=== PATIENT | female | born 1965 ===

== ENCOUNTER → 2018-07-27 | Outpatient (CLI) | payer OTHER | LOC: BMCIMAGING 10:09 | PROVIDERS: ATTEND Internal Medicine Hematology & Oncology | DX: Z13.820 Encounter for screening for osteoporosis (principal); C50.411 Malignant neoplasm of upper-outer quadrant of right female breast; M85.88 Other specified disorders of bone density and structure, other site ==

== ENCOUNTER 2018-09-28 05:38 | Observation (INO) | payer OTHER ==
--- NOTE | 2018-09-06 14:16 | GHP ---
DATE OF ADMISSION: 09/28/2018 ADMITTING DIAGNOSES: 1. History of breast cancer. 2. Prophylactic cancer risk reduction. HISTORY OF PRESENT ILLNESS: Patient is a 53-year-old, G1, P1-0-0-1, who presents for a surgery consult from Dr. Champion's office with a recent diagnosis of stage I breast cancer December 2017. In March 2018, she underwent a lumpectomy with sentinel node biopsy revealing invasive ductal carcinoma, grade 1. She then underwent a course of brachytherapy. Mirena IUD was removed in January of 2018. She noted occasional hot flashes, but was not having any cycles. The patient had Mirena IUD for 10 years and did not have any bleeding. The patient was recently just placed on Lupron by Dr. Champion, questionable menopausal status. Patient was also started on an aromatase inhibitor. The patient at this time is wanting prophylactic surgery done to reduce her cancer risk. The patient is aware that she is not a candidate for hormone replacement therapy. She was offered [facility] cancer genetic screening and patient declined. We discussed proceeding with laparoscopic removal of her uterus, tubes, and ovaries. PAST OBSTETRIC HISTORY: In 1997, she had a secondary to arrest of dilation. GYNECOLOGIC HISTORY: Age of menarche was 14. Cycles were regular. She then got Mirena IUD and for the last 10 years has had no cycles, now questionable menopausal status. The patient denies a history of abnormal Pap smears or any exposure to sexually transmitted diseases. CURRENT MEDICATIONS: Include Lupron, aromatase inhibitor, niacin and vitamin D. ALLERGIES: No known drug allergies. PAST MEDICAL HISTORY: Remarkable for breast cancer, stage I. PAST SURGICAL HISTORY: In 1997, ; in March of 2018, right breast lumpectomy. SOCIAL HISTORY: Patient is and lives with her . She works at a [employer]. Patient is a former tobacco user, smoked for 20-25 years. Drinks socially, 1-2 drinks per month and denies any illicit drug use. FAMILY HISTORY: Sister, migraine headache. Mother, cardiovascular disease. Daughter, type 2 diabetes and PE secondary to OCP use and at age 17. REVIEW OF SYSTEMS: 10-point review of systems is negative. Pertinent positives noted in the HPI. PHYSICAL EXAMINATION UPON ADMISSION,: VITAL SIGNS: Stable. Patient is afebrile. GENERAL: The patient is well-nourished, well-developed female. Alert and oriented x3. CARDIOVASCULAR: Regular rate and rhythm. LUNGS: Clear to auscultation bilaterally. SKIN: Warm, dry without rash. NEURO: Grossly intact. ABDOMEN: Soft, nontender, nondistended. Pfannenstiel incision well healed. PELVIS: On bimanual exam, normal-size uterus noted that is nontender and mobile. No adnexal masses or tenderness appreciated. EXTREMITIES: Normal to inspection without calf tenderness or edema. ASSESSMENT/PLAN: Patient is a 53-year-old with a history of breast cancer , stage I, status post lumpectomy and a course of brachytherapy for surgery for prophylactic cancer risk reduction. 1. Discussed the procedure, its limitations, nothing by mouth status, and postoperative recovery. Also discussed removing her ovaries and a surgical menopause and symptoms of menopause similar to the Lupron she is on now. She is aware she is not a candidate for hormone replacement and wants to proceed with having her ovaries removed at the time of surgery. 2. Surgical consents were obtained. Discussed risks, benefits, alternatives of the procedure, including but not limited to, bleeding, infection, and damage to surrounding organs. The patient understands all risks at this time and wants to proceed. 3. Antibiotics silk conditioner to operating room. 4. Sequential compression devices for DVT prophylaxis. 5. Lovenox postoperative for 10 days per her oncologist-Dr. Champion's recommendation. /[id number]/MODL MTDD
[2018-09-28] MEDS ORDERED: ceFAZolin 2 GM/DEXTROSE 100 ML IV ONE (05:50)
[2018-09-28] MEDS ORDERED: LR 1,000 ML IV ONE (05:51)
[2018-09-28] MEDS ORDERED: LIDOCAINE 1% 2 ML INJ ID PRN (05:51)
[2018-09-28] MEDS ORDERED: BUPIVACAINE 0.5% 30 ML SDV ONE (06:16)
[2018-09-28] MEDS ORDERED: MIDAZOLAM 2 MG/2 ML VIAL IVP ONE (06:52)
--- NOTE | 2018-09-28 06:52 | PDANEPAE ---
ANE History of Present Illness here for lap hyst ANE Past Medical History - Cardiovascular History Hx Hypertension: No Hx Arrhythmias: No Hx Chest Pain: No Hx Coronary Artery / Peripheral Vascular Disease: No Hx CHF / Valvular Disease: No Hx Palpitations: No - Pulmonary History Hx COPD: No Hx Asthma/Reactive Airway Disease: No Hx Recent Upper Respiratory Infection: No Hx Oxygen in Use at Home: No Hx Sleep Apnea: No Sleep Apnea Screening Result - Last Documented: Negative - Neurologic History Hx Cerebrovascular Accident: No Hx Seizures: No Hx Dementia: No - Endocrine History Hx Diabetes: No - Renal History Hx Renal Disorders: No - Liver History Hx Hepatic Disorders: No - Neurological & Psychiatric Hx Hx Neurological and Psychiatric Disorders: No - Cancer History Hx Cancer: Yes Cancer History Comment: breast ca - Congenital Disorder History Hx Congenital Disorders: No - GI History Hx Gastrointestinal Disorders: No - Other Health History Other Health History: wears glasses - Chronic Pain History Chronic Pain: No - Surgical History Prior Surgeries: . lumpectomy ANE Review of Systems Review of systems is: negative Review of Systems: - Exercise capacity Exercise capacity: >=4 METS METS (RN): 5 METS ANE Patient History - Allergies Allergies/Adverse Reactions: No Known Allergies Allergy (Verified 09/19/18 11:54) - Home Medications Home medications: home medication list seen and reviewed Home Medications: Calcium Carbonate 1,200 mg PO DAILY 09/17/18 [Last Taken 09/21/18] Cholecalciferol (Vitamin D3) [Vitamin D3] 2,000 unit PO DAILY 09/17/18 [Last Taken 09/21/18] Letrozole [Femara 2.5 mg (*)] 2.5 mg PO DAILY 09/17/18 [Last Taken 09/28/18 04: 00] Niacin [Niacin 500 mg (*)] 500 mg PO DAILY 09/17/18 [Last Taken 09/21/18] [place]-3 Fatty Acids [Fish Oil 1000 mg (*)] 1,000 mg PO DAILY 09/17/18 [Last Taken 09/21/18] Zoledronic Acid/Mannitol-Water [Zometa 4 mg/100 ml Injection] 4 mg IV Q180D [Last Taken 09/21/18] - NPO status NPO Status: no food or drink >8 hours NPO Since - Liquids (Date): 09/28/18 NPO Since - Liquids (Time): 04:00 NPO Since - Solids (Date): 09/27/18 NPO Since - Solids (Time): 18:00 - Smoking Hx Smoking Status: Former smoker - Family Anes Hx Family Hx Anesthesia Complications: none ANE Labs/Vital Signs - Vital Signs Vital Signs: reviewed preoperatively; see RN documention for details Blood Pressure: 124/90 Heart Rate: 87 Respiratory Rate: 18 O2 Sat (%): 97 Height: 152.4 cm Weight: 58.967 kg ANE Physical Exam - Airway Neck exam: FROM Mallampati Score: Class 1 Mouth exam: normal dental/mouth exam - Pulmonary Pulmonary: no respiratory distress - Cardiovascular Cardiovascular: regular rate and rhythym - ASA Status ASA Status: II ANE Anesthesia Plan Anesthesia Plan: general endotracheal anesthesia
[2018-09-28] MEDS ORDERED: PROPOFOL/EMULSION 500 MG/50 ML BOTTLE IV ONE (07:02)
--- NOTE | 2018-09-28 07:08 | PDHPUP ---
History & Physical Update H&P update statement: This history and physical update is based on an assessment of the patient which was completed after admission or registration (within 24 hours), but prior to the surgery/procedure. H&P update: H&P reviewed & patient examined, no change in patient's condition since H&P completed
[2018-09-28] MEDS ORDERED: ONDANSETRON 4 MG/2 ML VIAL ONE (07:29)
[2018-09-28] MEDS ORDERED: DEXAMETHASONE 4 MG/ML VIAL ONE (07:29)
[2018-09-28] MEDS ORDERED: DEXAMETHASONE 4 MG/ML VIAL IVP PRN (07:48)
[2018-09-28] MEDS ORDERED: fentaNYL 100 MCG/2 ML INJ IVP PRN (07:48)
[2018-09-28] MEDS ORDERED: PROMETHAZINE HCL 25 MG/ML INJ IVP PRN (07:48)
[2018-09-28] MEDS ORDERED: ONDANSETRON 4 MG/2 ML VIAL IVP PRN ×2 (07:48→09:24)
[2018-09-28] MEDS ORDERED: LR 500 ML IV PRN (07:48)
[2018-09-28] MEDS ORDERED: ALBUTEROL 3 ML DEYVIAL IH PRN (07:48)
[2018-09-28] MEDS ORDERED: NALOXONE HCL 0.4 MG/ML INJ IVP PRN ×2 (07:48→09:52)
[2018-09-28] MEDS ORDERED: HYDROmorphONE/DILAUDID 2 MG/ML INJ IVP PRN (07:48)
[2018-09-28] MEDS ORDERED: fentaNYL 100 MCG/2 ML INJ ONE ×3 (07:54→09:39)
[2018-09-28] MEDS ORDERED: SUGAMMADEX SODIUM 200 MG/2 ML VIAL IVP ONE (09:05)
--- NOTE | 2018-09-28 09:19 | POSTOPPROG ---
Post Op Note Date of Operation: 09/28/18 Surgeon: Harleen Issa Transport Rn: Lizbeth Johnston Anesthesiologist: Taye Bar Anesthesia: GET(General Endotracheal) Pre-op Diagnosis: h/o breast cancer; prophylactic removal of ut, tubes and ovaries Post-op Diagnosis: h/o breast cancer; prophylactic removal of ut, tubes and ovaries Indication: 53 y/o w/ personal h/o breast ca, prophylactic removal of ut, tubes/ov Procedure: TLH, BSO Findings: Grossly normal appearing uterus, tubes and ovaries; upper abd normal Inf/Abcess present in the surg proc area at time of surgery?: No Depth: Organ Space EBL: 50-100 (50cc) Total fluids administered: 800 cc LR UO: 300 cc clear urine at end Complications: none Specimen(s): Uterus, cervix, tubes and ovaries
[2018-09-28] MEDS ORDERED: BISACODYL 10 MG SUPP PR PRN (09:20)
[2018-09-28] MEDS ORDERED: POLYETHYLENE GLYCOL 3350 17 GM PKT PO PRN (09:20)
[2018-09-28] MEDS ORDERED: MAGNESIUM HYDROXIDE 30 ML UDCUP PO PRN (09:20)
[2018-09-28] MEDS ORDERED: LACTULOSE 20 GM/30 ML UDCUP PO PRN (09:20)
[2018-09-28] MEDS ORDERED: LR 1,000 ML IV SCH (09:30)
[2018-09-28] MEDS ORDERED: LABETALOL HCL 20 MG/4 ML INJ IVP PRN (09:52)
--- NOTE | 2018-09-28 10:38 | POSTANESTH ---
Post Anesthetic Evaluation Cardiovascular Status: Normal, Stable Respiratory Status: Normal, Stable Level of Consciousness/Mental Status: Can Participate in Eval Pain Control: Adequate, Prn Tx Ordered Nausea/Vomiting Control: Adequate, Prn Tx Ordered Complications Possibly Related to Anesthesia: None Noted
--- NOTE | 2018-09-28 12:43 | GOP ---
DATE OF OPERATION: 09/28/2018 SURGEON: Harleen Issa DO CORROSION TECHNICIAN: Lizbeth Johnston MD. ANESTHESIA: General anesthesia with endotracheal tube. ANESTHESIOLOGIST: Taye Bar MD. PREOPERATIVE DIAGNOSIS: 1. History of breast cancer. 2. Prophylactic organ removal. POSTOPERATIVE DIAGNOSIS: 1. Personal history of breast cancer. 2. Prophylactic organ removal. PROCEDURE PERFORMED: Total laparoscopic hysterectomy with bilateral salpingo- oophorectomy. FINDINGS: Grossly normal-appearing uterus, tubes, and ovaries bilaterally. Upper abdomen grossly normal appearing as well. SPECIMENS: Uterus with cervix, tubes, and ovaries bilaterally. ESTIMATED BLOOD LOSS: 50 cc. INDICATIONS: Patient is a 53-year-old, G1, P1, with a diagnosis of breast cancer in December 2017, who underwent a lumpectomy followed by brachytherapy. The patient presented to the office for a surgical consult for prophylactic removal of her uterus, tubes, and ovaries. Discussed risks of the procedure including but not limited to, bleeding, infection, and damage to surrounding organs. The patient understands all risks of the procedure and wants to proceed at this time. Patient was properly consented. DESCRIPTION OF PROCEDURE: Patient was taken back to the operating room where general anesthesia was obtained without difficulty. The patient was then placed in dorsal lithotomy position, and prepped and draped in the usual sterile fashion. Saldana catheter was placed at this time. After WHO time-out was performed, an open ended speculum was placed in the vagina. The cervix was visualized and the anterior lip of the cervix was grasped with a single-tooth tenaculum. The cervical os needed to be dilated and was dilated to a #6 Hegar and sounded to 6 cm. A V-Care manipulator with ceramic cup was inserted and used as a means to manipulate the uterus. The weighted speculum was then removed. Attention was then turned to the abdomen. 0.5% plain Marcaine was used for infiltration of the infraumbilical area, then a 5 mm skin incision was made in this area using a scalpel. The Veress needle was then inserted uneventfully while tenting the abdominal wall. Opening pressure was less than 8 mmHg. Peritoneal cavity was then insufflated with CO2 gas to a maximum pressure of 20 mmHg. The Veress needle was then removed and a 5 mm trocar attached to a 0 degree laparoscope was introduced without difficulty through this site directly into the peritoneal cavity. The pelvic organs were visualized. After 5% plain Marcaine infiltration was done, a 10 mm skin incision was made on the right side and a 5 mm skin incision was made on the left side. Atraumatic trocars were then placed under direct visualization. At this time, the uterus was then upheld from below which revealed normal uterus, normal tubes and ovaries at this time. Beginning on the right side, the infundibular ligament was identified. The ureter was also visualized along the pelvic sidewall with peristalsis noted. At this time, using the LigaSure device, the IP ligament was clamped, cauterized multiple times and transected. Hemostasis was noted. Broad ligament was then clamped, cauterized multiple times and transected. The round ligament was then cauterized and cut using the LigaSure. The anterior leaf of the broad ligament was then taken down on the right side, dissecting down toward the peritoneal reflection at the base of the bladder adjacent to the cervix. A bladder flap was then created without difficulty. Uterine arteries were then were bilaterally clamped, cauterized multiple times and ligated. Pedicles appeared hemostatic The same process was repeated on the left side. At this time we were ready for the colpotomy which was done circumferentially with a monopolar J-hook. The uterus plus tubes and ovaries were then delivered through the vagina intact without difficulty and sent to Pathology. A sterile glove was then placed in the vagina to perform a pneumatic seal. We then went back up to the abdomen and looked at all the pedicles as well as the cuff and hemostasis was noted. The vaginal cuff was then closed with the V- Loc barbed stitch. Following this closure, re-inspection revealed hemostasis. The pelvis was then irrigated with normal saline. The fascia of the 10 mm port was closed with a Dewayne-Thomasen device using 0 Vicryl. All other ports were then removed under direct visualization and all air was allowed to escape the abdomen. All skin incisions were closed with Dermabond. The patient tolerated the procedure well. There were no complications. At the end of the procedure, sponge and glove was removed from the vagina. All sponges, instruments, and needles were counted and correct x2. The patient was then awakened, taken out of dorsal lithotomy position and sent to recovery room in stable condition. IV FLUIDS: 800 cc LR. URINE OUTPUT: 300 cc of clear urine at the end the procedure. COMPLICATIONS: There were no complications. /[id number]/MODL MTDD
[2018-09-28] MEDS: HYDROCODONE/APAP 5/325 TAB PO PRN ×4 (13:41→22:07)
[2018-09-28] MEDS: KETOROLAC 30 MG/1 ML SDV IVP SCH ×2 (14:55→20:57)
--- NOTE | 2018-09-28 17:30 | SOAPPROG ---
SOAP Progress Note Assessment/Plan: Assessment: s/p TLH, BSO secondary to h/o breast cancer POD # 0 - pt is stable Plan: Continue routine post-op care Encourage IS, ambulation Cont analgesics as ordered Lovenox tonight at 2100 Urine output is good H/H in am 09/29 Plan for d/c home in am 09/2909/28/18 17:30 Subjective: Pt seen and examined. Doing well with no complaints, sitting in chair. Pain is overall well controlled. Pt took po meds at 1600. Pt is OOB to chair, ayala regular diet, grewal in place, no flatus. Denies any f/c/n/v/P or SOB. Minimal spotting noted. No calf tenderness or pain. Objective: Vital Signs Temp Pulse Resp BP Pulse Ox 36.7 C 82 16 149/90 H 99 09/28/18 15:25 09/28/18 15:25 09/28/18 15:25 09/28/18 15:25 09/28/18 15:25 09/27/18 09/28/18 09/29/18 05:59 05:59 05:59 Intake Total 2049 Output Total 1350 Balance 700 Physical Exam - Physical Exam General Appearance: WD/WN, alert, no apparent distress Respiratory: lungs clear, normal breath sounds Cardiac/Chest: regular rate, rhythm Abdomen: normal bowel sounds, soft, distended (mild), other (appropriate tenderness; Laparoscopic incisions C/D/I, well approximated with Dermabond) Pelvic Exam: deferred Skin: normal color, warm/dry Extremities: non-tender, normal inspection Neuro/Psych: alert, normal mood/affect, oriented x 3 ICD10 Worksheet Patient Problems: Problems Problem Status Onset History of breast cancer in female Acute Prophylactic organ removal Acute - ICD10 Problem Qualifiers (1) History of breast cancer in female (2) Prophylactic organ removal
[2018-09-28] MEDS: ENOXAPARIN 40 MG/0.4 ML SYR SC SCH (20:58)
[2018-09-28] MEDS: SENNOSIDES/DOCUSATE SODIUM TAB PO SCH (20:58)
[2018-09-29] MEDS: HYDROCODONE/APAP 5/325 TAB PO PRN ×3 (01:35→11:34)
[2018-09-29] MEDS: KETOROLAC 30 MG/1 ML SDV IVP SCH (03:05)
--- NOTE | 2018-09-29 07:52 | SOAPPROG ---
SOAP Progress Note Assessment/Plan: Assessment: 1) s/p TLH, BSO secondary to h/o breast cancer POD # 1 - pt is stable 2) HTN - no previous history Plan: Continue routine post-op care H/H stable, no anemia No issues with Lovenox last night I/O's good overnight HTN here in hospital, no h/o HTN-recommend f/u with PCP Plan for d/c home later this am after she eats and voids Rx given for Lovenox (RN teaching prior to d/c), [place] and Motrin Instructions reviewed with pt Pelvic rest and lifting restrictions given RTC in 2 weeks for an incision check 09/29/18 07:48 Subjective: Pt seen and examined. Patient did well overnight, no complaints. Pain is well controlled. Pt is OOB, ayala regular diet, grewal just removed-not voided yet, no flatus. Denies any f/c/n/v/CP or SOB. Minimal spotting noted. No previous issues with HTN in the past. Objective: Vital Signs Temp Pulse Resp BP Pulse Ox 36.4 C 73 18 152/90 H 96 09/29/18 03:03 09/29/18 03:03 09/29/18 03:03 09/29/18 03:03 09/29/18 03:03 Laboratory Results 09/29/18 06:30 09/28/18 09/29/18 09/30/18 05:59 05:59 05:59 Intake Total 2950 Output Total 2450 Balance 500 Physical Exam - Physical Exam General Appearance: WD/WN, alert, no apparent distress Respiratory: lungs clear, normal breath sounds Cardiac/Chest: regular rate, rhythm Abdomen: normal bowel sounds, soft, distended (mild), other (Appropriate tenderness; Laparoscopic incisions x 3 - C/D/I, well approximated with Dermabond ) Pelvic Exam: deferred Skin: normal color, warm/dry Extremities: non-tender, normal inspection Neuro/Psych: alert, normal mood/affect, oriented x 3 ICD10 Worksheet Patient Problems: Problems Problem Status Onset History of breast cancer in female Acute Prophylactic organ removal Acute - ICD10 Problem Qualifiers (1) History of breast cancer in female (2) Prophylactic organ removal
[2018-09-29] MEDS ORDERED: IBUPROFEN 600 MG TAB PO SCH (09:22)
[2018-09-29] MEDS: SENNOSIDES/DOCUSATE SODIUM TAB PO SCH (09:33)
[2018-09-29] MEDS: ENOXAPARIN 40 MG/0.4 ML SYR SC SCH (09:34)
[2018-09-29 10:24] VITALS: BP 132/86
[2018-09-29] MEDS ORDERED: ENOXAPARIN 40 MG/0.4 ML SYR SC SCH (21:30)
== END 2018-09-29 11:30 | disposition home or self-care (01) ==
LOC: F3N 05:38 → FOB 10:20
PROVIDERS: ADMIT Physician Assistant Medical; ATTEND Obstetrics & Gynecology
DX: Z85.3 Personal history of malignant neoplasm of breast (principal); Z40.02 Encounter for prophylactic removal of ovary(s); Z40.09 Encounter for prophylactic removal of other organ; R03.0 Elevated blood-pressure reading, without diagnosis of hypertension; Z87.891 Personal history of nicotine dependence
CPT/HCPCS: 58571; G0378; J0690; J1100; J1650; J1885; J2250; J2405; J2704; J3010